=== PATIENT | female | born 1990 | race Caucasian/White ===

== ENCOUNTER 2019-06-01 18:05 | Emergency (ER) | payer SELFPAY ==
[~2019-06-01] VITALS: Ht 167.6 cm; Wt 80.7 kg
[2019-06-01 18:17] VITALS: BP 117/78
--- NOTE | 2019-06-01 18:17 | NUR ---
PT C/O VOMITING X2, CONSTANT BURNING EPIGASTRIC PAIN, HEADACHE, CHEEK NUMBNESS/HEAVINESS AFTER EATING [place] IN [employer] IN [place]. DENIES DIARRHEA. PATIENT STATES PAIN OF 6/10 AT THIS TIME; VSS; PATIENT POSITIONED FOR COMFORT; HOB ELEVATED; BEDRAILS UP X1; BED DOWN. ER MD MADE AWARE OF PT STATUS.
--- NOTE | 2019-06-01 18:17 | NUR ---
Patient ambulated to bed 3
[2019-06-01] MEDS ORDERED: ONDANSETRON 4 MG ODT PO ONE (18:25)
[2019-06-01 18:46] VITALS: BP 115/74
== END 2019-06-01 18:46 | disposition home or self-care (01) ==
LOC: MED 18:05
DX: R11.2 Nausea with vomiting, unspecified (principal)
CPT/HCPCS: 99283; Q0162

== ENCOUNTER 2020-04-04 13:26 | Emergency (ER) | payer SELFPAY ==
[~2020-04-04] VITALS: Ht 167.6 cm; Wt 72.6 kg
[2020-04-04 13:52] VITALS: BP 113/74
[2020-04-04 14:54] VITALS: BP 113/74
== END 2020-04-04 14:53 | disposition home or self-care (01) ==
LOC: MED 13:26
DX: U07.1 COVID-19 (principal); R51 Headache; R11.0 Nausea; Z90.09 Acquired absence of other part of head and neck
CPT/HCPCS: 99283; U0003